=== PATIENT | female | born 1975 | race Caucasian/White ===

== ENCOUNTER 2019-10-13 00:25 | Emergency (ER) | payer BC ==
[~2019-10-13] VITALS: Ht 170.2 cm; Wt 86.4 kg
[2019-10-13 00:38] VITALS: Ht 170.2 cm; Wt 86.4 kg
[2019-10-13] MEDS ORDERED: ADDERALL 20 MG20 M1 PO (00:39)
[2019-10-13] MEDS ORDERED: VITAMIN D5000 UNI3 PO (00:40)
[2019-10-13] MEDS ORDERED: OMEGA-3100 MG PO (00:40)
[2019-10-13] MEDS ORDERED: PROBIOTIC1 EAC1 PO (00:40)
[2019-10-13 01:01] LABS: BASOPHILS 0.3 % (0-2); EOSINOPHILS 1.4 % (0-7); HEMATOCRIT 45.2 % (36.0-48.0); HEMOGLOBIN 14.9 g/dL (12-16); IMMATURE GRANULOCYTES 0.2 % (0-5); LYMPHOCYTES 34.4 % (15-50); MCH 30.7 pg (26.0-34.0); MCV 93.2 fL (80.0-100.0); MEAN PLATELET VOLUME 9.2 fL (7.4-10.4); MONOCYTES 9.1 % (2-11); NEUTROPHILS 54.6 % (40-80); PLATELET COUNT 365 10x3/uL (130-400); RBC 4.85 10x6/uL (4.00-5.40); RDW 13.3 % (11.5-14.5); WBC 8.7 10x3/uL (4.8-10.8)
[2019-10-13 01:12] LABS: CALC OSMOLALITY 279 mosm/kg (275-300); CALCIUM 8.8 mg/dL (8.5-10.1); CARBON DIOXIDE 26.8 mmol/L (21.0-32.0); CHLORIDE - SERUM 105 mmol/L (98-107); CREATININE - SERUM 0.7 mg/dL (0.6-1.3); GLUCOSE 95 mg/dL (74-106); POTASSIUM - SERUM 3.9 mmol/L (3.5-5.1); SODIUM 140 mmol/L (136-145); UREA NITROGEN 14 mg/dL (7-18); eGFR NON AFRICAN AMERICAN > 90 mL/min (90-120)
[2019-10-13 01:40] LABS: ALBUMIN 3.8 g/dL (3.4-5.0); ALKALINE PHOSPHATASE 59 U/L (30-120); ALT (SGPT) 28 U/L (10-68); BILIRUBIN - TOTAL 0.28 mg/dL (0.2-1.3); PRO BNP 17 pg/mL (0-125); PROTEIN - SERUM 7.3 g/dL (6.4-8.2); TROPONIN-I < 0.017 ng/mL (0.000-0.060)
[2019-10-13 02:10] VITALS: BP 139/70
== END 2019-10-13 02:10 | disposition home or self-care (01) ==
LOC: D.ER 00:25
PROVIDERS: Family Medicine
DX: R07.89 Other chest pain (principal); R05 Cough; F98.8 Other specified behavioral and emotional disorders with onset usually occurring in childhood and adolescence